=== PATIENT | female | born 1975 | race American Indian/Alaskan Native ===

== ENCOUNTER 2021-12-28 08:06 | Day surgery (SDC) | payer OTHER ==
[~2021-12-28 08:06] MED LIST: ACETAMINOPHEN 500 MG TAB PO SCH; CELECOXIB 200 MG CAP PO NR; GABAPENTIN 300 MG CAP PO NR; LACTATED RINGERS 1,000 ML IV SCH; MIDAZOLAM 2 MG/2 ML INJ IV NR; SCOPOLAMINE TRANSDERMAL PATCH 72 HR TD NR
[2021-12-28] MEDS ORDERED: BACTERIOSTATIC SODIUM CHLORIDE 0.9% 30 ML VIAL INFILTRATI ONE (08:40)
[2021-12-28 09:39] LABS: Hematocrit 38.4 % (30.3-42.9); Hemoglobin 12.5 gm/dl (10.1-14.3); Mean Corpuscular HGB Conc 33 % (30-34); Mean Corpuscular Volume 83 fl (79-97); Platelet Count 333 K/mm3 (140-440); Red Blood Count 4.62 M/mm3 (3.65-5.03); Red Cell Distribution Width 14.8 % (13.2-15.2)
--- NOTE | 2021-12-28 09:50 | Anesthesia Consultation ---
Anesthesia Consult and Med Hx Date of service: 12/28/21 - Airway Anesthetic Teeth Evaluation: Good ROM Head & Neck: Adequate Mental/Hyoid Distance: Adequate Mallampati Class: Class II Intubation Access Assessment: Probably Good - Pre-Operative Health Status ASA Pre-Surgery Classification: ASA1 Proposed Anesthetic Plan: General - Pulmonary Hx Smoking: No Hx Respiratory Symptoms: No - Cardiovascular System Hx Hypertension: No - Central Nervous System CVA: No - Endocrine Hx Renal Disease: No Hx Liver Disease: No Hx Insulin Dependent Diabetes: No Hx Non-Insulin Dependent Diabetes: No Hx Thyroid Disease: No - Other Systems Hx Obesity: Yes (BMI 32) - Additional Comments Anesthesia Medical History Comments: Hx PONV.
--- NOTE | 2021-12-28 09:51 | Anesthesia Day of Surgery ---
Anesthesia Day of Surgery - Day of Surgery Patient Examined: Yes Patient H&P Reviewed: Yes Patient is NPO: Yes
[2021-12-28] MEDS ORDERED: oxyCODONE /ACETAMINOPHEN 5-325MG TAB PO PRN (10:00)
[2021-12-28] MEDS ORDERED: BUPIVACAINE/PF (0.25%) 2.5 MG/ML 30 ML VIAL INFILTRATI ONE ×2 (10:09→12:15)
[2021-12-28] MEDS ORDERED: propofoL 200 MG/20 ML VIAL IV ONE (10:19)
[2021-12-28] MEDS ORDERED: LIDOCAINE MPF (2%) 20 MG/1 ML VIAL 5 ML ONE (10:19)
[2021-12-28] MEDS ORDERED: HYDROmorphone 1 MG/1 ML INJ ONE (10:19)
[2021-12-28] MEDS ORDERED: ROCURONIUM 50 MG/5 ML INJ IV ONE (10:20)
--- NOTE | 2021-12-28 10:26 | Short Stay Summary ---
Short Stay Documentation Date of service: 12/28/21 Narrative H&P: Pt is a 46 year old female who had recent onset of pelvic pain. Ultrasound revealed a large ovarian cyst. Pt has also been trying to conceive and is concerned about the patency of her tubes. - History Principal diagnosis: Pelvic pain and ovarian cyst H&P: obtained from office Past Medical History: No medical history Past Surgical History: Other (laparoscopy, RSO) Social history: - Allergies and Medications Current Medications: Allergies No Known Allergies Allergy (Unverified 12/21/21 16:16) Home Medications Medication Instructions Recorded Confirmed Last Taken Type Multivitamin [Multiple Vitamins] 1 each PO DAILY 12/21/21 12/21/21 Unknown History Active Medications Acetaminophen (Acetaminophen 500 Mg Tab) 1,000 mg PO PREOP MAYA Celecoxib (Celecoxib 200 Mg Cap) 200 mg PO PREOP NR Stop: 12/28/21 23:59 Gabapentin (Gabapentin 300 Mg Cap) 300 mg PO PREOP NR Stop: 12/28/21 23:59 Hydromorphone HCl (Hydromorphone 1 Mg/1 Ml Inj) 0.5 mg IV Q10MIN PRN PRN Reason: Pain , Severe (7-10) Lactated Ringer's (Lactated Ringers) 1,000 mls @ 100 mls/hr IV DIRECT MAYA Stop: 12/28/21 23:59 Cefazolin Sodium (Ancef/Sterile Water 2 Gm/20 Ml) 2 gm in 20 mls @ 80 mls/hr IV PREOP NR; Protocol Midazolam HCl (Midazolam 2 Mg/2 Ml Inj) 2 mg IV PREOP NR Stop: 12/28/21 23:59 Ondansetron HCl (Ondansetron 4 Mg/2 Ml Inj) 4 mg IV ONCE PRN PRN Reason: Nausea And Vomiting Oxycodone/Acetaminophen (Oxycodone /Acetaminophen 5-325mg Tab) 1 tab PO ONCE PRN PRN Reason: Pain, Moderate (4-6) Scopolamine (Scopolamine Transdermal Patch 72 Hr) 1 each TD PREOP NR Stop: 12/28/21 23:59 - Physical exam General appearance: no acute distress HEENT: Atraumatic Lungs: Clear to auscultation, Normal air movement Breasts: deferred Heart: Regular rate, Normal S1, Normal S2 Gastrointestinal: normal, normoactive bowel sounds Female Genitourinary: deferred Rectal Exam: deferred Extremities: no ischemia, No edema - Brief post op/procedure progress note Date of procedure: 12/28/21 Pre-op diagnosis: 1. Pelvic pain 2. Endometriosis 3. Ovarian cyst 4. Infertility Post-op diagnosis: same Procedure: Operative laparoscopy, chromotubation, lysis of adhesions, D&C hysteroscopy, surgical opening of left fallopian tube Anesthesia: GETA Findings: Significant endometriosis throughout the pelvis and uterus, no evidence of active ovarian cyst, Paul-Lyle Shawn adhesions along the liver edge, thickened endometrial lining with polyps, blocked fallopian tube at the level of the cornua Surgeon: TYLER WHITE Estimated blood loss: 50-100ml Pathology: list (Endometrial curetting) Specimen disposition: to lab Condition: stable - Hospital course Hospital course: Unremarkable - Disposition Condition at discharge: Good Disposition: 01 HOME / SELF CARE / HOMELESS Short Stay Discharge Plan Activity: advance as tolerated Weight Bearing Status: Weight Bear as Tolerated Diet: regular Follow up with: TYLER WHITE MD [Staff Physician] - 14 Days Prescriptions: Ibuprofen [Motrin] 800 mg PO Q8HR PRN #40 tablet PRN Reason: Pain, Mild (1-3) oxyCODONE /ACETAMINOPHEN [Percocet 5/325] 2 tab PO Q6HR PRN #40 tablet PRN Reason: Pain
[2021-12-28] MEDS ORDERED: METHYLENE BLUE 50 MG/10 ML AMP ONE (10:27)
[2021-12-28] MEDS ORDERED: ONDANSETRON 4 MG/2 ML INJ IV PRN (10:30)
[2021-12-28] MEDS ORDERED: HYDROmorphone 1 MG/1 ML INJ IV PRN (10:30)
[2021-12-28] MEDS ORDERED: dexAMETHasone 20 MG/5 ML VIAL ONE (10:58)
[2021-12-28] MEDS ORDERED: ceFAZolin/Water 2 GM/20 ML 2 GM/20 ML SYRINGE IV NR (11:00)
[2021-12-28] MEDS ORDERED: SODIUM CHLORIDE 0.9% 250ML 0 ML ONE (11:15)
[2021-12-28] MEDS ORDERED: METHYLENE BLUE 50 MG/10 ML AMP IRRIGATION ONE (11:20)
[2021-12-28] MEDS ORDERED: SODIUM CHLORIDE 0.9% IRR 1,500 ML BOTTLE IR ONE (11:21)
--- NOTE | 2021-12-28 13:01 | Operative Report ---
Operative Report Operative Report: Pre Op Diagnosis: Pelvic pain, endometriosis, ovarian cyst, infertility Post Op Diagnosis: Same without evidence of ovarian cyst Procedure: Operative laparoscopy with lysis of adhesions, D&C hysteroscopy, chromotubation, Surgeon: Fernanda Goldman MD EBL: 50 cc IVF: 1100 cc Urine output: 400 cc clear Specimen: Endometrial curettings Complications: None Findings:Significant endometriosis throughout the pelvis and uterus, no evidence of active ovarian cyst, Paul-Lyle Shawn adhesions along the liver edge, thickened endometrial lining with polyps, blocked fallopian tube at the level of the cornua Procedure: The patient returned to the OR with IV running and in place. She was given general anesthesia without difficulty. She was then placed in dorsolithotomy position and prepped and draped in normal sterile fashion. A Saleh catheter was inserted. Attention was then turned to the patient's vagina. A bivalve speculum placed in the vagina, the uterus was then identified and grasped with single-tooth tenaculum. The HUMI uterine ablator was placed into the cervix to provide a means to manipulate the uterus. The surgeon gloves were then changed, the speculum was removed, and attention was turned to the patient's abdomen. An infra abdominal incision was made and through this incision a 5 mm trocar was placed. Under direct visualization, a second trocar was placed in the left lower quadrant through a small incision on that side. The probe was used to remove the bowel from the viewing field, and the uterus was identified. There was no evidence of a cyst on either ovary nor an the one remaining tube. There was evidence of Paul-Lyle Shawn adhesions along the liver edge. Approximately 40 cc of methylene blue dye diluted in saline was injected into the uterine cavity. The tube did not fill. The fimbriated end of the tube was identified and grasped. Through that and, a small dilator was placed into the tube which was found to be patent up to the level of the cornua. Minor dissection was done however there was still no drainage of blue dye when a second dose of methylene blue was injected into the uterus. At this point the decision was made to proceed from the lower and within the body of the uterus. Attention was turned back to the patient's vagina, and the speculum was reinserted. The HUMI was removed, and the cervix was again grasped with a single-tooth tenaculum. The uterus was then gently sounded to approximately 9 cm in length. It was then gently dilated up to approximately 21 mm. The hysteroscope was then introduced into the uterine cavity. It revealed a very thickened shaggy endometrium as well as evidence of polyps. At this point the ostia could not be visualized. The scope was then removed, and the curettage was performed. This was done to there was a gritty texture noted in all 4 quadrants of the uterus. A second look was made using hysteroscope. At this point the ostia was able to be visualized. A guidewire catheter was then placed through the scope into the uterus and into the ostia on the left. There seemed to be appropriate passage of the wire through the ostia. At this point, the instruments removed from the patient's vagina, and attention was returned to her abdomen and pelvis. The eye was again placed through the catheter to look for spew and there was minor spillage at the level of the fimbria as well as some bluing of the tube on the left. There was excellent hemostasis at this time. At this point all ins truments and trochars were removed from the patient's abdomen and vaginal area. The incisions were closed with 4-0 Monocryl. Marcaine was injected at the end of the procedure. The sponge needle instrument counts were correct x2. The patient taught the procedure well and was taken recovery in stable condition.
--- NOTE | 2021-12-28 14:54 | Post Anesthesia Evaluation ---
- Post Anesthesia Evaluation Patient Participated: Yes Airway Patent: Yes Stable Respiratory Function: Yes Nausea/Vomiting: No Temp > 96.8F: Yes Pain Manageable: Yes Adequeate Hydration: Yes Anesthesia Complications: No
[2021-12-28 16:17] VITALS: BP 136/77
== END 2021-12-28 14:30 | disposition home or self-care (01) ==
LOC: OR 08:06
PROVIDERS: ATTEND Obstetrics & Gynecology
DX: R10.2 Pelvic and perineal pain (principal); N80.9 Endometriosis, unspecified; N97.9 Female infertility, unspecified; N83.209 Unspecified ovarian cyst, unspecified side; E66.9 Obesity, unspecified; Z79.899 Other long term (current) drug therapy; Z72.89 Other problems related to lifestyle; Z98.890 Other specified postprocedural states; Z68.32 Body mass index [BMI] 32.0-32.9, adult
CPT/HCPCS: 36415; 49329; 58350; 58558; 81025; 85027; 88305; C1758; C1769; J0690; J1100; J1170; J2250; J2704; J3490; J7120; Q9968; J7050